=== PATIENT | male | born 1950 | race Caucasian/White ===

== ENCOUNTER 2025-02-06 21:01 | Emergency (ER) | payer OTHER ==
[2025-02-06 21:20] VITALS: BP 146/86; PULSE 90; RESP 18; TEMP 98.4; BMI 31.1
== END 2025-02-06 23:30 | disposition home or self-care (01) ==
LOC: FER 21:01
PROC: 0HQ1XZZ Repair Face Skin, External Approach (ICD-10-PCS; principal; 2025-02-06)
DX: S01.81XA Laceration without foreign body of other part of head, initial encounter (principal); Y04.8XXA Assault by other bodily force, initial encounter
CPT/HCPCS: 12011-25; 70450-TC; 70486-TC; 72125-TC; 99284-25

== ENCOUNTER 2025-02-13 11:18 | Emergency (ER) | payer OTHER ==
[2025-02-13 11:24] VITALS: BP 117/77; PULSE 79; RESP 16; TEMP 98.2; BMI 30.9
[2025-02-13] MEDS ORDERED: DIPHTH,PERTUSS(ACELL),TET 0.5 ML DISP.SYRIN IM ONE (11:43)
[2025-02-13] MEDS: DIPHTH,PERTUSS(ACELL),TET 0.5 ML DISP.SYRIN IM ONE (11:46)
== END 2025-02-13 11:53 | disposition home or self-care (01) ==
LOC: FER 11:18
DX: Z48.02 Encounter for removal of sutures (principal)
CPT/HCPCS: 90715; 99281-25